=== PATIENT | female | born 1980 | race Caucasian/White ===

== ENCOUNTER 2016-12-24 14:22 | Emergency (ER) | payer BC ==
[2016-12-24] MEDS ORDERED: TORAdol 30 mg Injection IV ONE (14:53)
[2016-12-24] MEDS ORDERED: Phenergan 25 MG INJ IV ONE (14:53)
[2016-12-24] MEDS ORDERED: Sodium Chloride 0.9% 1000 ML 1,000 ML IV STA (14:53)
--- NOTE | 2016-12-24 14:53 | ERPHSYRPT ---
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 Pt able to ambulate with assistance, holding her head. 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 Following the dizziness she became nauseated. And then she developed a headache. This same problem has occurred 3 times over the past year. Just before the headache the patient states her heart was be rapidly but she was able to calm herself down and felt better. As in the past, the dizziness returned a few times. She has never sought medical care. She did receive Tylenol from the school nurse. Light and noise bothers her. Her headache feels like a tights band around her head. Her past medical history is unremarkable. Timing/Duration: today, hour(s) (2), sudden Quality: tightness Head Pain Location: frontal, occipital Severity of Pain-Max: moderate Severity of Pain-Current: moderate Recent Head Trauma: occasional headaches Modifying Factors: Improves With: exposure to light, medication Associated Symptoms: dizziness, light-headedness, nausea/vomiting, vision changes Previous symptoms: same symptoms as today Allergies/Adverse Reactions: No Known Drug Allergies Allergy (Verified 12/24/16 14:34) Home Medications: Ethinyl Estradiol/Drospirenone [Gianvi 3 mg-0.02 mg Tablet] 1 each PO DAILY 07/22 [History] Hx Tetanus, Diphtheria Vaccination/Date Given: Yes Hx Influenza Vaccination/Date Given: No Hx Pneumococcal Vaccination/Date Given: No Immunizations Up to Date: Yes - Review of Systems Constitutional: No Fever, No Chills Eyes: No Symptoms Ears, Nose, & Throat: No Symptoms Respiratory: No Cough, No Dyspnea Cardiac: No Chest Pain, No Edema, No Syncope Abdominal/Gastrointestinal: Nausea Genitourinary Symptoms: No Dysuria Musculoskeletal: No Back Pain, No Neck Pain Skin: No Rash Neurological: Dizziness Psychological: No Symptoms Endocrine: No Symptoms Hematologic/Lymphatic: No Symptoms Immunological/Allergic: No Symptoms All Other Systems: Reviewed and Negative - Past Medical History Pertinent Past Medical History: Yes Neurological History: No Pertinent History ENT History: No Pertinent History Cardiac History: No Pertinent History Respiratory History: No Pertinent History Endocrine Medical History: No Pertinent History Musculoskeletal History: Fractures GI Medical History: Gallbladder Disease, Irritable Bowel, Other History: Other Psycho-Social History: No Pertinent History Female Reproductive Disorders: No Pertinent History Other Medical History: SPASTIC COLON. KIDNEY REFLUX. FRACTURED R ANKLE AT AGE 17. - Past Surgical History Past Surgical History: Yes Neuro Surgical History: No Pertinent History Cardiac: No Pertinent History Respiratory: No Pertinent History Gastrointestinal: No Pertinent History Genitourinary: No Pertinent History Musculoskeletal: No Pertinent History Female Surgical History: No Pertinent History Other Surgical History: edita - Social History Smoking Status: Never smoker Exposure to second hand smoke: No Alcohol Use: Socially Drug Use: none Patient Lives Alone: No Significant Family History: no pertinent family hx - Female History Hx Last Menstrual Period: 11/23/2016 Hx Now: No - Nursing Vital Signs Nursing Vital Signs: Initial Vital Signs Temperature 97.8 F 12/24/16 14:27 Pulse Rate 92 H 12/24/16 14:27 Respiratory Rate 16 12/24/16 14:27 Blood Pressure 121/51 12/24/16 14:27 O2 Sat by Pulse Oximetry 99 12/24/16 14:27 Pain Scale Pain Intensity 7 - Physical Exam General Appearance: mild distress, other (palpation of scalp muscles elicits tenderness.) Eye Exam: PERRL/EOMI Ears, Nose, Throat Exam: normal ENT inspection, moist mucous membranes Neck Exam: normal inspection, supple, full range of motion, No meningismus Respiratory Exam: normal breath sounds, lungs clear Cardiovascular Exam: regular rate/rhythm, normal heart sounds Gastrointestinal/Abdominal Exam: soft, No tenderness, No distention Back Exam: normal inspection, normal range of motion Extremity Exam: normal inspection Mental Status Exam: alert, oriented x 3, cooperative makeup sales consultant Exam: normal speech, PERRL, tongue midline, No facial droop Motor/Sensory Exam: no motor deficit, no sensory deficit Skin Exam: normal color, warm, dry, No rash SpO2 Interpretation: normal SpO2: 99 Oxygen Delivery: Room Air - Course EKG Interpreted by Me: RATE, Sinus Rhythm, NORMAL INTERVALS, NORMAL QRS, NORMAL ST-T - Radiology Exams Chest X-ray Interpretation: Reviewed by me, Teleradiologist Report, Negative (Per Dr Seymour.) Ordered Tests: Active Orders 24 hr Category Date Time Status Supervisor [employer] STAT Care 12/24/16 14:53 Active IV Insertion STAT Care 12/24/16 14:53 Active CHEST 2 VIEWS (PA AND LAT) Stat Exams 12/24/16 14:55 Completed CBC W DIFF Stat Lab 12/24/16 15:10 Completed CMP Stat Lab 12/24/16 15:10 Completed TROPONIN Q3H Lab 12/24/16 15:00 Completed TROPONIN Q3H Lab 12/24/16 18:00 Ordered TROPONIN Q3H Lab 12/24/16 21:00 Ordered TROPONIN Q3H Lab 12/25/16 00:00 Ordered TROPONIN Q3H Lab 12/25/16 03:00 Ordered UA W/RFX UR CULTURE Stat Lab 12/24/16 15:00 Completed Medication Summary Discontinued Medications Generic Name Dose Route Start Last Admin Trade Name Freq PRN Reason Stop Dose Admin Sodium Chloride 1,000 mls @ 999 mls/hr 12/24/16 14:53 12/24/16 15:17 Sodium Chloride 0.9% 1000 Ml IV 12/24/16 15:53 999 mls/hr .Q1H1M STA Administration Sodium Chloride Confirm 12/24/16 15:14 Sodium Chloride 0.9% 1000 Ml Administered 12/24/16 15:15 Dose 1,000 mls @ ud .ROUTE .STK-MED ONE Ketorolac Tromethamine 30 mg 12/24/16 14:53 12/24/16 15:18 Toradol 30 Mg Injection IV 12/24/16 14:54 30 mg STAT ONE Administration Ketorolac Tromethamine Confirm 12/24/16 15:14 Toradol 30 Mg Injection Administered 12/24/16 15:15 Dose 30 mg .ROUTE .STK-MED ONE Promethazine HCl 25 mg 12/24/16 14:53 12/24/16 15:17 Phenergan 25 Mg Inj IV 12/24/16 14:54 25 mg STAT ONE Administration Promethazine HCl Confirm 12/24/16 15:14 Phenergan 25 Mg Inj Administered 12/24/16 15:15 Dose 25 mg .ROUTE .STK-MED ONE Lab/Rad Data: Laboratory Result Diagrams 12/24/16 15:10 12/24/16 15:10 Laboratory Results 12/24/16 12/24/16 12/24/16 Range/Units 15:10 15:10 15:00 WBC 8.6 (4.0-10.5) K/mm3 RBC 4.81 (4.1-5.4) M/mm3 Hgb 13.1 (12.0-16.0) gm/dl Hct 39.9 (35-47) % MCV 83.0 (78-100) fl MCH 27.2 (26-32) pg MCHC 32.8 (32-36) g/dl RDW 14.2 H (11.5-14.0) % Plt Count 365 (150-450) K/mm3 MPV 10.6 H (6-9.5) fl Gran % 53.1 (36.0-66.0) % Lymphocytes % 34.2 (24.0-44.0) % Monocytes % 7.7 (0.0-12.0) % Eosinophils % 4.4 (0.00-5.0) % Basophils % 0.6 (0.0-0.4) % Basophils # 0.05 (0-0.4) Sodium 143 (136-145) mEq/L Potassium 3.9 (3.5-5.1) mEq/L Chloride 106 (98-107) mEq/L Carbon Dioxide 25.4 (21-32) mEq/L Anion Gap 15.8 H (5-15) MEQ/L BUN 10 (9-20) mg/dL Creatinine 0.69 (0.55-1.30) mg/dl Estimated GFR > 60 ML/MIN Glucose 100 (70-110) MG/DL Calcium 10.1 (8.5-10.1) mg/dL Total Bilirubin 0.20 (0.2-1.0) mg/dL AST 16 (15-37) U/L ALT 27 (12-78) U/L Alkaline Phosphatase 75 (46-116) U/L Troponin I < 0.017 (0.000-0.056) ng/ml Serum Total Protein 8.1 (6.4-8.2) gm/dL Albumin 4.1 (3.4-5.0) g/dL Ur Collection Type Urine Color (YELLOW) Urine Appearance (CLEAR) Urine pH (5-6) Ur Specific [place] (1.005-1.025) Urine Protein (Negative) Urine Ketones (NEGATIVE) Urine Blood (0-5) Jani/ul Urine Nitrite (NEGATIVE) Urine Bilirubin (NEGATIVE) Urine Urobilinogen (0-1) mg/dL Ur Leukocyte Esterase (NEGATIVE) Urine Glucose (NEGATIVE) mg/dL Specimen Received 12/24/16 Range/Units 15:00 WBC (4.0-10.5) K/mm3 RBC (4.1-5.4) M/mm3 Hgb (12.0-16.0) gm/dl Hct (35-47) % MCV (78-100) fl MCH (26-32) pg MCHC (32-36) g/dl RDW (11.5-14.0) % Plt Count (150-450) K/mm3 MPV (6-9.5) fl Gran % (36.0-66.0) % Lymphocytes % (24.0-44.0) % Monocytes % (0.0-12.0) % Eosinophils % (0.00-5.0) % Basophils % (0.0-0.4) % Basophils # (0-0.4) Sodium (136-145) mEq/L Potassium (3.5-5.1) mEq/L Chloride (98-107) mEq/L Carbon Dioxide (21-32) mEq/L Anion Gap (5-15) MEQ/L BUN (9-20) mg/dL Creatinine (0.55-1.30) mg/dl Estimated GFR ML/MIN Glucose (70-110) MG/DL Calcium (8.5-10.1) mg/dL Total Bilirubin (0.2-1.0) mg/dL AST (15-37) U/L ALT (12-78) U/L Alkaline Phosphatase (46-116) U/L Troponin I (0.000-0.056) ng/ml Serum Total Protein (6.4-8.2) gm/dL Albumin (3.4-5.0) g/dL Ur Collection Type VOID Urine Color STRAW (YELLOW) Urine Appearance CLEAR (CLEAR) Urine pH 7.0 (5-6) Ur Specific [place] 1.005 (1.005-1.025) Urine Protein NEGATIVE (Negative) Urine Ketones NEGATIVE (NEGATIVE) Urine Blood NEGATIVE (0-5) Jani/ul Urine Nitrite NEGATIVE (NEGATIVE) Urine Bilirubin NEGATIVE (NEGATIVE) Urine Urobilinogen NORMAL (0-1) mg/dL Ur Leukocyte Esterase NEGATIVE (NEGATIVE) Urine Glucose NEGATIVE (NEGATIVE) mg/dL Specimen Received 12/24/16 1500 - Progress Progress: improved Air Movement: good Progress Note: 12/24/16 16:51 After receiving Toradol 30 mg, Phenergan 25 mg, and 1 L of normal saline by IV in the ER, the patient states her headache has lessened and she feels better. She is still frustrated because she doesn't know why she has had these occurrences 3 times over the past year. Blood Culture(s) Obtained: No Antibiotics given: No Counseled pt/family regarding: lab results, diagnosis, need for follow-up, rad results - Departure Time of Disposition: 16:52 Departure Disposition: Home Clinical Impression: Headache, Dizziness Condition: Stable Critical Care Time: No Referrals: KEYONNA HENNESSY [Primary Care Provider] - Additional Instructions: You have a headache and dizziness. You were given Toradol 30 mg, Phenergan 25 mg, and 1 L of normal saline by IV in the ER. You were offered Phenergan 25 mg to take every 8 hours orally as needed for headache but you declined. I would like for you to follow-up either with your primary care provider, analytical strategist, or neurologist.
[2016-12-24] MEDS ORDERED: Phenergan 25 MG INJ ONE (15:14)
[2016-12-24] MEDS ORDERED: Sodium Chloride 0.9% 1000 ML 1,000 ML ONE (15:14)
[2016-12-24] MEDS ORDERED: TORAdol 30 mg Injection ONE (15:14)
[2016-12-24 15:18] LABS: ADD URINE CULTURE? NO (NO); Bilirubin NEGATIVE (NEGATIVE); Blood NEGATIVE Ery/ul (0-5); COMPLETE URINE MICROSCOPIC? NO; Collection Type VOID; Glucose NEGATIVE (NEGATIVE); Leukocyte Esterase NEGATIVE (NEGATIVE)
[2016-12-24 15:21] LABS: BASOPHIL % 0.6 % (0.0-0.4); Eosinophil % 4.4 % (0.00-5.0); Granulocytes % 53.1 % (36.0-66.0); Lymphocytes % 34.2 % (24.0-44.0); Mean Corpuscular Hemoglobin 27.2 pg (26-32); Mean Platelet Volume 10.6 fl (6-9.5); Monocytes % 7.7 % (0.0-12.0); Platelet Count 365 K/mm3 (150-450); Red Blood Count 4.81 M/mm3 (4.1-5.4); Red Cell Distribution Width 14.2 % (11.5-14.0); White Blood Count 8.6 K/mm3 (4.0-10.5)
[2016-12-24 15:38] LABS: ALBUMIN 4.1 g/dL (3.4-5.0); ALKALINE PHOSPHATASE 75 U/L (46-116); ANION GAP 15.8 MEQ/L (5-15); BLOOD UREA NITROGEN 10 mg/dL (9-20); CHLORIDE 106 mEq/L (98-107); Carbon Dioxide 25.4 mEq/L (21-32); Glucose 100 MG/DL (70-110); Potassium 3.9 mEq/L (3.5-5.1); SGOT/AST 16 U/L (15-37); SGPT/ALT 27 U/L (12-78); SODIUM 143 mEq/L (136-145); Total Protein 8.1 gm/dL (6.4-8.2)
--- NOTE | 2016-12-24 16:27 | XRAY ---
Indication: Dizziness. Comparison: November 05, 2016. PA/lateral chest again demonstrates normal heart, lungs, and bony thorax.
[2016-12-24 17:05] VITALS: BP 129/73; PULSE 76; O2SAT 100
== END 2016-12-24 17:05 | disposition home or self-care (01) ==
LOC: ED 14:22
DX: R51 Headache (principal); R42 Dizziness and giddiness; R11.2 Nausea with vomiting, unspecified; H53.9 Unspecified visual disturbance
CPT/HCPCS: 36000; 36415; 71020; 80053; 81002; 84484; 85025; 93005; 93041; 96360; 96374; 96375; 99284; J1885; J2550

== ENCOUNTER 2017-08-16 14:58 | Emergency (ER) | payer BC ==
[2017-08-16] MEDS ORDERED: ROCEPHIN 1 Gm-D5w 50 ml Bag** 1 G/50 ML IVPB IV STA (15:25)
[2017-08-16] MEDS ORDERED: Phenergan 25 MG INJ IV ONE (15:32)
[2017-08-16] MEDS ORDERED: Hydromorphone 1 mg/ml Ampule IV ONE (15:32)
--- NOTE | 2017-08-16 15:32 | ERPHSYRPT ---
- History of Present Illness Time Seen by Provider: 08/16/17 15:08 Source: patient Exam Limitations: no limitations Patient Subjective Stated Complaint: Pt states "I got a pneumonia shot on thursday and this morning I noticed the site is red, swollen and warm to the touch , I am exhausted and I do not feel well." Triage Nursing Assessment: Pt alert and oriented X 3, skin pwd PT ambulates with a slow steady gait, able to speak in clear full sentences. Pt warm to touch Physician History: TWO DAYS AGO PT RECEIVED A PNEUMONIA VACCINE AND SINCE HAS HAD GENERALIZED ACHES , GENERALIZED WEAKNESS, HEADACHE AND PAIN IN THE LEFT ARM(WHERE THE VACCINE WAS GIVEN). TODAY PT DEVELOPED A RED RASH AND SWELLING IN THE LEFT ARM, SUBJECTIVE FEVER AND CHILLS. Allergies/Adverse Reactions: No Known Drug Allergies Allergy (Verified 12/24/16 14:34) Home Medications: Albuterol 2.5 mg/3 ml Neb [Proventil 2.5 mg/3 ml Neb] 2.5 mg IH QID [History] Albuterol Sulfate [Proair Hfa] 2 puff IH QID PRN PRN 07/09/17 [History] Famotidine 20 mg [Pepcid 20 MG] 20 mg PO DAILY PRN PRN 07/09/17 [History] Mometasone/Formoterol [Dulera 100 Mcg/5 Mcg Inhaler] 2 puff IH BID 07/09/17 [ History] Montelukast Sodium 10 mg [Singulair 10 MG] 10 mg PO DAILY 07/09/17 [History] Omeprazole 20 MG [Prilosec 20 mg] 40 mg PO DAILY 07/09/17 [History] Hx Tetanus, Diphtheria Vaccination/Date Given: No Hx Influenza Vaccination/Date Given: No Hx Pneumococcal Vaccination/Date Given: Yes Immunizations Up to Date: Yes - Review of Systems Constitutional: Fever, Chills, Weakness Musculoskeletal: Myalgias Skin: Rash Neurological: Headache All Other Systems: Reviewed and Negative - Past Medical History Pertinent Past Medical History: Yes Neurological History: No Pertinent History ENT History: No Pertinent History Cardiac History: No Pertinent History Respiratory History: Asthma, Other Endocrine Medical History: No Pertinent History Musculoskeletal History: Fractures GI Medical History: Gallbladder Disease, Irritable Bowel, Other History: Other Psycho-Social History: No Pertinent History Female Reproductive Disorders: No Pertinent History Other Medical History: SPASTIC COLON. KIDNEY REFLUX. FRACTURED R ANKLE AT AGE 17. hx cough chronic since 03/27. allergies - Past Surgical History Past Surgical History: Yes Neuro Surgical History: No Pertinent History Cardiac: No Pertinent History Respiratory: No Pertinent History Gastrointestinal: No Pertinent History, Cholecystectomy Genitourinary: No Pertinent History Musculoskeletal: No Pertinent History Female Surgical History: Tubal Ligation Other Surgical History: d&c. endometrial ablation - Social History Smoking Status: Never smoker Exposure to second hand smoke: No Alcohol Use: Socially Drug Use: none Patient Lives Alone: No Significant Family History: no pertinent family hx - Female History Hx Last Menstrual Period: ablasion Hx Now: No - Nursing Vital Signs Nursing Vital Signs: Initial Vital Signs Temperature 100.0 F 08/16/17 15:08 Pulse Rate 124 H 08/16/17 15:08 Respiratory Rate 18 08/16/17 15:08 Blood Pressure 159/77 08/16/17 15:08 O2 Sat by Pulse Oximetry 96 08/16/17 15:08 Pain Scale Pain Intensity 4 - Physical Exam General Appearance: alert Eye Exam: eyes nml inspection Ears, Nose, Throat Exam: dry mucous membranes, pharyngeal erythema Neck Exam: normal inspection Respiratory Exam: lungs clear Cardiovascular Exam: normal heart sounds Gastrointestinal/Abdomen Exam: soft, normal bowel sounds Back Exam: normal range of motion Extremity Exam: tenderness (MILD TENDERNESS, EDEMA AND ERYTHEMA OVER LEFT UPPER ARM), No pedal edema Neurologic Exam: alert, cooperative SpO2 Interpretation: normal SpO2: 97 Oxygen Delivery: Room Air - Course Nursing assessment & vital signs reviewed: Yes Ordered Tests: Active Orders 24 hr Category Date Time Status AMYLASE Stat Lab 08/16/17 15:45 Completed BLOOD CULTURE Stat Lab 08/16/17 15:45 Received CBC W DIFF Stat Lab 08/16/17 15:45 Completed CMP Stat Lab 08/16/17 15:45 Completed CULTURE, THROAT Stat Lab 08/16/17 15:45 Received Erythrocyte Sedimentation Rate Stat Lab 08/16/17 15:45 Completed LIPASE Stat Lab 08/16/17 15:45 Completed MAGNESIUM Stat Lab 08/16/17 15:45 Completed Kerr Screen Stat Lab 08/16/17 15:45 Completed STREP SCREEN-BETA A Stat Lab 08/16/17 15:45 Completed UA W/RFX UR CULTURE Stat Lab 08/16/17 15:23 Completed Medication Summary Generic Name Dose Route Start Last Admin Trade Name Aiyana PRN Reason Stop Dose Admin Clindamycin HCl/Dextrose 600 mg in 50 mls @ 100 mls/hr 08/16/17 16:51 Clindamycin-D5w 600 Mg/50 Ml IV 08/16/17 17:20 STAT STA Discontinued Medications Generic Name Dose Route Start Last Admin Trade Name Aiyana PRN Reason Stop Dose Admin Fentanyl Citrate 50 mcg 08/16/17 15:39 08/16/17 15:44 Sublimaze 100 Mcg/2 Ml IV 08/16/17 15:40 50 mcg STAT ONE Administration Fentanyl Citrate Confirm 08/16/17 15:41 Sublimaze 100 Mcg/2 Ml Administered 08/16/17 15:42 Dose 100 mcg .ROUTE .STK-MED ONE Hydromorphone HCl 1 mg 08/16/17 15:32 08/16/17 15:43 Hydromorphone 1 Mg/Ml Ampule IV 08/16/17 15:33 Not Given STAT ONE Ceftriaxone Sodium/Dextrose 1 g in 50 mls @ 100 mls/hr 08/16/17 15:25 15:45 Rocephin 1 Gm-D5w 50 Ml Bag IV 08/16/17 15:54 100 mls/hr STAT STA Administration Ceftriaxone Sodium/Dextrose Confirm 08/16/17 15:37 Rocephin 1 Gm-D5w 50 Ml Bag Administered 08/16/17 15:38 Dose 1 g in 50 mls @ ud IV .STK-MED ONE Promethazine HCl 12.5 mg 08/16/17 15:32 08/16/17 15:44 Phenergan 25 Mg Inj IV 08/16/17 15:33 12.5 mg STAT ONE Administration Promethazine HCl Confirm 08/16/17 15:36 Phenergan 25 Mg Inj Administered 08/16/17 15:37 Dose 25 mg .ROUTE .STK-MED ONE Lab/Rad Data: Laboratory Result Diagrams 08/16/17 15:45 08/16/17 15:45 Laboratory Results 08/16/17 08/16/17 08/16/17 Range/Units 15:45 15:45 15:45 WBC (4.0-10.5) K/mm3 RBC (4.1-5.4) M/mm3 Hgb (12.0-16.0) gm/dl Hct (35-47) % MCV (78-100) fl MCH (26-32) pg MCHC (32-36) g/dl RDW (11.5-14.0) % Plt Count (150-450) K/mm3 MPV (6-9.5) fl Gran % (36.0-66.0) % Eos # (Auto) (0-0.5) Absolute Lymphs (auto) (1.0-4.6) Absolute Monos (auto) (0.0-1.3) Lymphocytes % (24.0-44.0) % Monocytes % (0.0-12.0) % Eosinophils % (0.00-5.0) % Basophils % (0.0-0.4) % Absolute Granulocytes (1.4-6.9) Basophils # (0-0.4) ESR (0-20) mm/hr Sodium 142 (137-145) mmol/L Potassium 3.9 (3.5-5.1) mmol/L Chloride 105 (98-107) mmol/L Carbon Dioxide 22 (22-30) mmol/L Anion Gap 19.7 H (5-15) MEQ/L BUN 17 (7-17) mg/dL Creatinine 0.60 (0.52-1.04) mg/dL Estimated GFR > 60.0 ML/MIN Glucose 100 (74-106) mg/dL Calcium 10.1 (8.4-10.2) mg/dL Magnesium 1.9 (1.6-2.3) mg/dL Total Bilirubin 0.70 (0.2-1.3) mg/dL AST 30 (14-36) U/L ALT 44 H (0-35) U/L Alkaline Phosphatase 153 H (38-126) U/L Serum Total Protein 8.4 H (6.3-8.2) g/dL Albumin 4.9 (3.5-5.0) g/dL Amylase 91 (30-110) U/L Lipase 97 (23-300) U/L Ur Collection Type Urine Color (YELLOW) Urine Appearance (CLEAR) Urine pH (5-6) Ur Specific [place] (1.005-1.025) Urine Protein (Negative) Urine Ketones (NEGATIVE) Urine Blood (0-5) Jani/ul Urine Nitrite (NEGATIVE) Urine Bilirubin (NEGATIVE) Urine Urobilinogen (0-1) mg/dL Ur Leukocyte Esterase (NEGATIVE) Urine Culture Reflexed (NO) Urine Glucose (NEGATIVE) mg/dL Monoscreen NEGATIVE (Negative) Streptococcus Screen NEGATIVE (Negative) Specimen Received 08/16/17 08/16/17 Range/Units 15:45 15:23 WBC 13.2 H (4.0-10.5) K/mm3 RBC 5.31 (4.1-5.4) M/mm3 Hgb 14.6 (12.0-16.0) gm/dl Hct 44.1 (35-47) % MCV 83.1 (78-100) fl MCH 27.5 (26-32) pg MCHC 33.1 (32-36) g/dl RDW 15.7 H (11.5-14.0) % Plt Count 377 (150-450) K/mm3 MPV 11.0 H (6-9.5) fl Gran % 86.7 H (36.0-66.0) % Eos # (Auto) 0.07 (0-0.5) Absolute Lymphs (auto) 1.05 (1.0-4.6) Absolute Monos (auto) 0.62 (0.0-1.3) Lymphocytes % 7.9 L (24.0-44.0) % Monocytes % 4.7 (0.0-12.0) % Eosinophils % 0.5 (0.00-5.0) % Basophils % 0.2 (0.0-0.4) % Absolute Granulocytes 11.46 H (1.4-6.9) Basophils # 0.02 (0-0.4) ESR 13 (0-20) mm/hr Sodium (137-145) mmol/L Potassium (3.5-5.1) mmol/L Chloride (98-107) mmol/L Carbon Dioxide (22-30) mmol/L Anion Gap (5-15) MEQ/L BUN (7-17) mg/dL Creatinine (0.52-1.04) mg/dL Estimated GFR ML/MIN Glucose (74-106) mg/dL Calcium (8.4-10.2) mg/dL Magnesium (1.6-2.3) mg/dL Total Bilirubin (0.2-1.3) mg/dL AST (14-36) U/L ALT (0-35) U/L Alkaline Phosphatase (38-126) U/L Serum Total Protein (6.3-8.2) g/dL Albumin (3.5-5.0) g/dL Amylase (30-110) U/L Lipase (23-300) U/L Ur Collection Type CLEAN CATCH Urine Color YELLOW (YELLOW) Urine Appearance HAZY (CLEAR) Urine pH 5.0 (5-6) Ur Specific [place] 1.025 (1.005-1.025) Urine Protein 100 (Negative) Urine Ketones NEGATIVE (NEGATIVE) Urine Blood NEGATIVE (0-5) Jani/ul Urine Nitrite NEGATIVE (NEGATIVE) Urine Bilirubin NEGATIVE (NEGATIVE) Urine Urobilinogen NORMAL (0-1) mg/dL Ur Leukocyte Esterase NEGATIVE (NEGATIVE) Urine Culture Reflexed NO (NO) Urine Glucose NEGATIVE (NEGATIVE) mg/dL Monoscreen (Negative) Streptococcus Screen (Negative) Specimen Received 08/16/17 1615 - Departure Time of Disposition: 16:55 Departure Disposition: Home Clinical Impression: CELLULITIS OF LEFT ARM, PHARYNGITIS Condition: Stable Critical Care Time: No Referrals: KEYONNA HENNESSY [Primary Care Provider] - Instructions: Cellulitis (Skin Infection), Adult (DC) Additional Instructions: FOLLOW UP WITH PRIVATE DOCTOR TOMORROW. ELEVATE LEFT ARM ABOVE HEART LEVEL FOR 24 HOURS. Prescriptions: Naproxen [Naprosyn] 500 mg PO Q12H PRN PRN #20 tablet PRN Reason: Pain Clindamycin HCl 300 mg PO Q6H #40 capsule
[2017-08-16] MEDS ORDERED: Phenergan 25 MG INJ ONE (15:36)
[2017-08-16] MEDS ORDERED: ROCEPHIN 1 Gm-D5w 50 ml Bag** 1 G/50 ML IVPB IV ONE (15:37)
[2017-08-16] MEDS ORDERED: SUBLIMAZE 100 MCG/2 ML IV ONE (15:39)
[2017-08-16] MEDS ORDERED: SUBLIMAZE 100 MCG/2 ML ONE (15:41)
[2017-08-16 16:14] LABS: BASOPHIL % 0.2 % (0.0-0.4); Basophil (Absolute #) 0.02 (0-0.4); Eosinophil % 0.5 % (0.00-5.0); Eosinophil (Absolute #) 0.07 (0-0.5); Granulocyte Absolute (ANC) 11.46 (1.4-6.9); Granulocytes % 86.7 % (36.0-66.0); Hematocrit 44.1 % (35-47); Hemoglobin 14.6 gm/dl (12.0-16.0); Lymphocyte (Absolute #) 1.05 (1.0-4.6); Lymphocytes % 7.9 % (24.0-44.0); Mean Cell Volume 83.1 fl (78-100); Mean Corpuscular Hemoglobin 27.5 pg (26-32); Mean Corpuscular Hgb Concent. 33.1 g/dl (32-36); Monocyte (Absolute #) 0.62 (0.0-1.3); Monocytes % 4.7 % (0.0-12.0); Platelet Count 377 K/mm3 (150-450); Red Blood Count 5.31 M/mm3 (4.1-5.4); Red Cell Distribution Width 15.7 % (11.5-14.0); White Blood Count 13.2 K/mm3 (4.0-10.5)
[2017-08-16 16:25] LABS: Appearance HAZY (CLEAR); Bilirubin NEGATIVE (NEGATIVE); Blood NEGATIVE Ery/ul (0-5); Glucose NEGATIVE (NEGATIVE); Ketones NEGATIVE (NEGATIVE); Leukocyte Esterase NEGATIVE (NEGATIVE); Nitrite NEGATIVE (NEGATIVE); Protein,Urine Dip 100 (Negative); Specific Gravity 1.025 (1.005-1.025); Urobilinogen NORMAL mg/dL (0-1)
[2017-08-16 16:36] LABS: ALBUMIN 4.9 g/dL (3.5-5.0); ALKALINE PHOSPHATASE 153 U/L (38-126); AMYLASE 91 U/L (30-110); ANION GAP 19.7 MEQ/L (5-15); BLOOD UREA NITROGEN 17 mg/dL (7-17); CHLORIDE 105 mmol/L (98-107); Calcium 10.1 mg/dL (8.4-10.2); Carbon Dioxide 22 mmol/L (22-30); Glucose 100 mg/dL (74-106); LIPASE 97 U/L (23-300); Potassium 3.9 mmol/L (3.5-5.1); SGOT/AST 30 U/L (14-36); SGPT/ALT 44 U/L (0-35); SODIUM 142 mmol/L (137-145); Total Protein 8.4 g/dL (6.3-8.2)
[2017-08-16 16:42] LABS: Erythrocyte Sedimentation Rate 13 mm/hr (0-20)
[2017-08-16] MEDS ORDERED: CLINDAMYCIN-D5W 600 MG/50 ML*** 600 MG/50 ML BAG IV STA (16:51)
[2017-08-16 16:55] VITALS: PULSE 116
[2017-08-16] MEDS ORDERED: CLINDAMYCIN-D5W 600 MG/50 ML*** 600 MG/50 ML BAG IV ONE (16:57)
[2017-08-16 17:29] VITALS: BP 127/88; O2SAT 100
== END 2017-08-16 17:31 | disposition home or self-care (01) ==
LOC: ED 14:58
DX: L03.115 Cellulitis of right lower limb (principal); T88.0XXA Infection following immunization, initial encounter; J02.9 Acute pharyngitis, unspecified; M79.1 Myalgia; J45.909 Unspecified asthma, uncomplicated; R51 Headache
CPT/HCPCS: 36000; 36415; 80053; 81002; 82150; 83690; 83735; 85025; 85652; 86308; 87040; 87070; 87430; 96365; 96367; 96374; 96375; 99283; 99284; J0696; J2550; J3010